=== PATIENT | female | born 1935 | race Caucasian/White ===

== ENCOUNTER 2020-10-02 08:07 | Inpatient (IN) | payer MEDICARE ==
[2020-10-02 09:08] LABS: ABSOLUTE BASOPHILS # (AUTO) 0.1 10^3/uL (0.0-0.2); ABSOLUTE EOSINOPHILS # (AUTO) 0.1 10^3/uL (0.0-0.6); ABSOLUTE MONOCYTES (AUTO) 0.4 10^3/uL (0.1-1.4); HEMATOCRIT 39.1 % (36.0-47.0); MEAN CORPUSCULAR HEMOGLOBIN 29.8 pg (27.0-33.4); RED CELL DISTRIBUTION WIDTH 13.5 % (11.5-14.0); TOTAL CELLS COUNTED % (AUTO) 100 %; VENOUS BLOOD BASE EXCESS 1.2 mmol/L; VENOUS BLOOD HCO3 25.6 mmol/L (20-32); VENOUS BLOOD PCO2 40.1 mmHg (35-63); VENOUS BLOOD PH 7.42 (7.30-7.42)
[2020-10-02 09:18] LABS: ABSOLUTE LYMPHOCYTES (AUTO) 0.7 10^3/uL (0.5-4.7); ABSOLUTE NEUT (AUTO) 4.9 10^3/uL (1.7-8.2); BASOPHILS % (AUTO) 1.2 % (0-2); EOSINOPHILS % (AUTO) 1.8 % (0-6); HEMOGLOBIN 13.8 g/dL (12.0-15.5); LYMPHOCYTES % (AUTO) 11.3 % (13-45); MEAN CORPUSCULAR HGB CONC 35.2 g/dL (32.0-36.0); MEAN CORPUSCULAR VOLUME 85 fl (80-97); MONOCYTES % (AUTO) 6.9 % (3-13); PLATELET COUNT 522 10^3/uL (150-450); RED BLOOD COUNT 4.62 10^6/uL (3.72-5.28); SEGMENTED NEUTROPHILS % (AUTO) 78.8 % (42-78); WHITE BLOOD COUNT 6.2 10^3/uL (4.0-10.5)
[2020-10-02 09:22] LABS: PROTHROMBIN TIME 13.4 SEC (11.4-15.4)
--- NOTE | 2020-10-02 09:23 | RADIOLOGY REPORT (SQ) ---
EXAM DESCRIPTION: CHEST SINGLE VIEW IMAGES COMPLETED DATE/TIME: 10/02/2020 9:06 am REASON FOR STUDY: bed 8 short of breath/sepsis protocol COMPARISON: None. FINDINGS: One-view chest AP upright portable. Lungs are hyperinflated with upper lobe emphysema. Relatively coarse reticular opacities are noted t hroughout the lower half of the lung romero, likely chronic with some component of fibrosis. No over t suggestion of cardiogenic pulmonary edema. Atypical infection to include COVID19 also in the diffe rential. TECHNICAL DOCUMENTATION: JOB ID: [id number] Reading location - IP/workstation name: [email or web address]
[2020-10-02 09:25] LABS: ALBUMIN 3.6 g/dL (3.5-5.0); ALKALINE PHOSPHATASE 137 U/L (38-126); ANION GAP 8 (5-19); ASPARTATE AMINO TRANSFERASE 57 U/L (14-36); BILIRUBIN,DIRECT 0.2 mg/dL (0.0-0.4); BILIRUBIN,TOTAL 0.6 mg/dL (0.2-1.3); BLOOD UREA NITROGEN 26 mg/dL (7-20); CALCIUM 9.5 mg/dL (8.4-10.2); CARBON DIOXIDE 27 mmol/L (22-30); CHLORIDE 100 mmol/L (98-107); GLUCOSE 128 mg/dL (75-110); POTASSIUM 3.7 mmol/L (3.6-5.0)
[2020-10-02] MEDS ORDERED: NORMAL SALINE 1000 ML 1,000 ML IV ONE (10:43)
[2020-10-02 11:06] LABS: C-REACTIVE PROTEIN 59.1 mg/L (<10.0)
[2020-10-02 11:44] LABS: APPEARANCE,URINE CLEAR; BILIRUBIN,URINE NEGATIVE (NEGATIVE); COLOR,URINE YELLOW; GLUCOSE, URINE NEGATIVE (NEGATIVE); KETONES,URINE NEGATIVE (NEGATIVE); LEUKOCYTE ESTERASE,URINE NEGATIVE (NEGATIVE); NITRITE,URINE NEGATIVE (NEGATIVE); PROTEIN,URINE NEGATIVE (NEGATIVE); URINE SPECIFIC GRAVITY 1.024; UROBILINOGEN,URINE NEGATIVE mg/dL (<2.0)
--- NOTE | 2020-10-02 12:10 | RADIOLOGY REPORT (SQ) ---
EXAM DESCRIPTION: CTA CHEST IMAGES COMPLETED DATE/TIME: 10/02/2020 11:51 am REASON FOR STUDY: covid positive/sobr COMPARISON: Radiographs 10/02/2020. TECHNIQUE: CT scan of the chest performed using helical scanning technique with dynamic intravenous contrast injection. Images reviewed with lung, soft tissue and bone windows. Reconstructed coronal and sagittal MPR images reviewed. Additional 3 dimensional post-processing performed to develop Maximal Intensity Projection images (PA P). All images stored on PACS. All CT scanners at this facility use dose modulation, iterative reconstruction, and/or weight based d osing when appropriate to reduce radiation dose to as low as reasonably achievable (ALARA). [facility]: Dose Right [facility]: CareDose [facility]: Dose Right [facility]: Teradose 4D [facility]: ColoWrap CONTRAST TYPE AND DOSE: contrast/concentration: Isovue 350.00 mmol/ml; Total Contrast Delivered: 75. 0 ml; Total Saline Delivered: 75.0 ml Contrast bolus adequate for pulmonary arteries and aorta. RENAL FUNCTION: GFR > 60. RADIATION DOSE: CT Rad equipment meets quality standard of care and radiation dose reduction techniq ues were employed. CTDIvol: 14.3 - 14.9 mGy. DLP: 513 mGy-cm. . LIMITATIONS: None. FINDINGS: LUNGS AND PLEURA: Emphysema in the upper lobes. Coarse interstitial opacities peripherall y in the left upper lobe, bilateral lower lobes and in the right middle lobe. Much of this has an ap pearance suggestive of chronic change and pulmonary fibrosis. Patchy ground-glass opacities are also suggested, however. Most notable in the left upper lobe. No significant pleural effusion or pleura l plaque. AORTA AND GREAT VESSELS: Atherosclerotic without aneurysm or dissection. Patent great vessel origins . HEART: No pericardial effusion. No significant Coronary calcification. PULMONARY ARTERIES: No emboli visualized in the main pulmonary arteries or the segmental branches. HILAR AND MEDIASTINAL STRUCTURES: Mild mediastinal and hilar adenopathy. Largest nodes are sub- redd nal measuring just over 1 cm in short axis. HARDWARE: None in the chest. UPPER ABDOMEN: Pneumobilia, presumed prior sphincterotomy. THYROID AND OTHER SOFT TISSUES: No masses. No adenopathy. BONES: Osteopenic. T12 compression fracture, acuity indeterminate. 3D MIPS: Confirm above findings. OTHER: No other significant finding. IMPRESSION: 1. Lung findings look generally chronic, emphysema with fibrosis. Mild patchy ground-glass infiltrat es in the left upper lobe may reflect the patient's COVID19 infection. 2. No evidence of pulmonary embolus. COMMENT: Quality ID # [id number]: Final reports with documentation of one or more dose reduction techniques (e.g., Automated exposure control, adjustment of the mA and/or kV according to patient size, use of iterative reconstruction technique) TECHNICAL DOCUMENTATION: JOB ID: [id number] 2010 [employer]- All Rights Reserved Reading location - IP/workstation name: [email or web address]
--- NOTE | 2020-10-02 15:03 | EKG REPORT ---
SEVERITY:- NORMAL ECG - SINUS RHYTHM : Confirmed by: Angel Arora 02-Oct-2020 15:02:19
--- NOTE | 2020-10-02 15:12 | ER Document Report ---
Entered by KAYLI ISABEL SCRIBE 10/02/20 1020 Acting as scribe for:VERÓNICA FAY MD ED Respiratory Problem - General Chief Complaint: Shortness Of Breath Stated Complaint: WEAKNESS,COUGH,SHORT OF BREATH Information source: Patient Notes: This 85 year old female patient with history of COPD, presents to the emergency department today with increased shortness of breath. Patient states she flew to [place] from [place] before and has been here since. Patient reports shortness of breath since 09/20 and visited urgent care on 09/22. Patient states she was tested covid + and so was her son and [id number]. Patient reports a productive cough and increased shortness of breath with exertion and at rest. - Related Data Allergies/Adverse Reactions: cat dander Allergy (Verified 10/02/20 08:35) pollen extracts Allergy (Verified 10/02/20 08:35) Past Medical History - General Information source: Patient - Social History Smoking Status: Former Smoker Cigarette use (# per day): No Chew tobacco use (# tins/day): No Frequency of alcohol use: Rare Drug Abuse: None Family History: Reviewed & Not Pertinent Patient has homicidal ideation: No Pulmonary Medical History: Reports: Hx COPD Review of Systems - Review of Systems Constitutional: See HPI, Other - covid + EENT: No symptoms reported Cardiovascular: No symptoms reported Respiratory: See HPI, Cough, Short of breath, Sputum Gastrointestinal: No symptoms reported Genitourinary: No symptoms reported Female Genitourinary: No symptoms reported Musculoskeletal: No symptoms reported Skin: No symptoms reported Hematologic/Lymphatic: No symptoms reported Neurological/Psychological: No symptoms reported -: Yes All other systems reviewed and negative Physical Exam - Vital signs Vitals: Temp 97.8 F 10/02/20 08:10 - General General appearance: Alert - HEENT Head: Normocephalic, Atraumatic Eyes: Normal Pupils: PERRL Pharynx: No: Erythema Neck: Supple - Respiratory Breath sounds: Productive cough Chest palpation: Normal Notes: Saturating between 89-95% on room air. Diminished breath sounds to bases bilaterally. - Cardiovascular Rhythm: Regular Heart sounds: Normal auscultation, S1 appreciated, S2 appreciated Murmur: No - Abdominal Inspection: Normal Distension: No distension Bowel sounds: Normal Tenderness: Nontender - Extremities General upper extremity: Normal inspection. No: Edema General lower extremity: Normal inspection. No: Edema - Neurological Neuro grossly intact: Yes Cognition: Normal Orientation: AAOx4 [place] Coma Scale Eye Opening: Spontaneous [place] Coma Scale Verbal: Oriented [place] Coma Scale Motor: Obeys Commands [place] Coma Scale Total: 15 Speech: Normal - Psychological Associated symptoms: Normal affect, Normal mood - Skin Skin Temperature: Warm Skin Moisture: Dry Skin Color: Normal Skin irregularity: negative: Rash Course - Re-evaluation Re-evalutation: 10/02/20 15:00 Patient is resting saturation has improved since patient was placed on 2 L nasal O2. Patient is on a 12-day of being Covid positive. Patient has a history of COPD. Patient presents to the emergency department today because of increasing exertion no dyspnea shortness of breath and low energy level. - Vital Signs Vital signs: Temp Pulse Resp BP Pulse Ox 97.8 F 26 H 160/72 H 96 10/02/20 08:20 10/02/20 13:28 10/02/20 13:28 10/02/20 13:28 10/02/20 15:03 Vital signs prior to nasal cannula O2 showed saturations between 89 to 93 percent. Once placed on nasal cannula O2 patient sats remained 94 to 97%. - Laboratory Results Result Diagrams: 10/02/20 08:48 10/02/20 08:48 Laboratory Results Interpreted: 10/02/20 10/02/20 10/02/20 08:48 08:48 08:48 Plt Count 522 H Lymph % (Auto) 11.3 L Seg Neutrophils % 78.8 H D-Dimer 1.29 H Sodium 135.1 L BUN 26 H Glucose 128 H AST 57 H ALT 56 H Alkaline Phosphatase 137 H Lactate Dehydrogenase C-Reactive Protein 10/02/20 08:48 Plt Count Lymph % (Auto) Seg Neutrophils % D-Dimer Sodium BUN Glucose AST ALT Alkaline Phosphatase Lactate Dehydrogenase 289 H C-Reactive Protein 59.1 H 10/02/20 15:03 10/02/20 08:48 10/02/20 08:48 MCV 85 fl (80-97) 10/02/20 08:48 MCH 29.8 pg (27.0-33.4) 10/02/20 08:48 MCHC 35.2 g/dL (32.0-36.0) 10/02/20 08:48 RDW 13.5 % (11.5-14.0) 10/02/20 08:48 Seg Neutrophils % 78.8 % (42-78) H 10/02/20 08:48 VBG pH 7.42 (7.30-7.42) 10/02/20 08:48 VBG pCO2 40.1 mmHg (35-63) 10/02/20 08:48 VBG HCO3 25.6 mmol/L (20-32) 10/02/20 08:48 VBG Base Excess 1.2 mmol/L 10/02/20 08:48 Chloride 100 mmol/L (98-107) 10/02/20 08:48 Carbon Dioxide 27 mmol/L (22-30) 10/02/20 08:48 Anion Gap 8 (5-19) 10/02/20 08:48 Est GFR ( Amer) > 60 (>60) 10/02/20 08:48 Glucose 128 mg/dL (75-110) H 10/02/20 08:48 Lactic Acid 1.0 mmol/L (0.7-2.1) 10/02/20 13:54 Calcium 9.5 mg/dL (8.4-10.2) 10/02/20 08:48 Ferritin 242.00 ng/mL (11.1-264.0) 10/02/20 08:48 Total Bilirubin 0.6 mg/dL (0.2-1.3) 10/02/20 08:48 AST 57 U/L (14-36) H 10/02/20 08:48 Alkaline Phosphatase 137 U/L (38-126) H 10/02/20 08:48 C-Reactive Protein 59.1 mg/L (<10.0) H 10/02/20 08:48 Total Protein 7.0 g/dL (6.3-8.2) 10/02/20 08:48 Albumin 3.6 g/dL (3.5-5.0) 10/02/20 08:48 Urine Color YELLOW 10/02/20 10:46 Urine Appearance CLEAR 10/02/20 10:46 Urine pH 6.0 (5.0-9.0) 10/02/20 10:46 Ur Specific [place] 1.024 10/02/20 10:46 Urine Protein NEGATIVE mg/dL (NEGATIVE) 10/02/20 10:46 Urine Glucose (UA) NEGATIVE mg/dL (NEGATIVE) 10/02/20 10:46 Urine Ketones NEGATIVE mg/dL (NEGATIVE) 10/02/20 10:46 Urine Blood NEGATIVE (NEGATIVE) 10/02/20 10:46 Urine Nitrite NEGATIVE (NEGATIVE) 10/02/20 10:46 Ur Leukocyte Esterase NEGATIVE (NEGATIVE) 10/02/20 10:46 Urine WBC (Auto) 1 /HPF 10/02/20 10:46 Urine RBC (Auto) 1 /HPF 10/02/20 10:46 10/02/20 08:48 Troponin I < 0.012 Patient's laboratories does not disclose any critical lab value at this time. Patient's troponin is less than 0.012 patient's white blood cell counts in the normal range patient's chemistry does not show any metabolic derangement patient's blood sugar is around 12 Patient does have some inflammatory markers consistently found elevated with Covid and that includes a C-reactive protein. Critical Laboratory Results Reviewed: Yes Attending or Supervising Physician who Reviewed Labs: VERÓNICA FAY COVID-19 infiltrate in lung - Radiology Results Radiology Results Interpreted: 10/02/20 15:06 Chest/Abdomen CTA 10/02/20 10:41 IMPRESSION: 1. Lung findings look generally chronic, emphysema with fibrosis. Mild patchy g round-glass infiltrates in the left upper lobe may reflect the patient's COVID19 infection. 2. No evidence of pulmonary embolus. CT chest abdomen CT angiogram shows chronic emphysematous changes with fibrosis however there is a mild patchy groundglass infiltrate in the left upper lobe consistent with COVID-19 infection. There is no evidence for pulmonary embolus. Critical Radiology Results Reviewed: Yes Attending or Supervising Physician who Reviewed Radiology: VERÓNICA FAY - COVID-19 groundglass infiltrate left upper lung - EKG Interpretation by Me Additional EKG results interpreted by me: 10/02/20 15:09 Twelve-lead EKG today shows normal sinus rhythm rate of 64 normal axis first- degree AV block QRS interval within normal range QT interval within normal range no acute ST elevations to suggest STEMI. Discharge - Discharge Clinical Impression: Shortness of breath, COVID-19, COPD (chronic obstructive pulmonary disease), L ow oxygen saturation Condition: Good Disposition: ADMITTED INPATIENT Admitting Provider: Erasto (Hospitalist) Unit Admitted: IMCU I personally performed the services described in the documentation, reviewed and edited the documentation which was dictated to the scribe in my presence, and it accurately records my words and actions.
[2020-10-02] MEDS ORDERED: IPRATROPIUM/ALBUTEROL 0.5-2.5 MG/3 ML AMPUL NEB PRN (15:43)
[2020-10-02] MEDS ORDERED: ONDANSETRON 4 MG TAB.RAPDIS PO PRN (15:43)
[2020-10-02] MEDS ORDERED: TEMAZEPAM 7.5 MG CAPSULE PO PRN (15:43)
[2020-10-02] MEDS ORDERED: MAG HYDROX/AL HYDROX/SIMETH SUSP 30 ML UDCUP PO PRN (15:43)
[2020-10-02] MEDS ORDERED: OXYCODONE-ACETAMINOPHEN 5-325 MG TABLET PO PRN (15:43)
[2020-10-02] MEDS ORDERED: ACETAMINOPHEN 325 MG TABLET PO PRN (15:43)
--- NOTE | 2020-10-02 15:43 | PDOC H&P ---
History of Present Illness Admission Date/PCP: 10/02/2020 Patient complains of: Patient presents to emergency room with complaints of difficulty breathing and shortness of breath. She lives in [place] although she has been here since before . She started having shortness of breath on September 20 and it appears she was diagnosed with COVID-19 on September 22 along with her son and [id number]. History of Present Illness: OSKAR MYERS is a 85 year old female Patient presents emergency room with complaints of difficulty breathing and shortness of breath. She lives in [place] although she has been here since before . She started having shortness of breath on September 20 and it appears she was diagnosed with COVID-19 on September 22 along with her son and [id number]. She said however that her symptoms have gotten worse especially with shortness of breath with exertion unable to rest over the last few days. CT scan shows lung findings with chronic emphysematous changes with fibrosis, mild patchy groundglass infiltrates in the left upper lobe which may reflect patient's COVID-19 infection. Patient has COPD underlying although she is on no oxygen as outpatient. As per the imaging findings it looks like she also have some component of chronic underlying pulmonary fibrosis. For text she was found to be hypoxemic on presentation Past Medical History Pulmonary Medical History: Reports: Chronic Obstructive Pulmonary Disease (COPD) Past Surgical History Past Surgical History: Reports: Other - Unknown Social History Information Source: Patient Smoking Status: Former Smoker Electronic Cigarette use?: No - Advance Directive Resuscitation Status: Full Code Family History Family History: Reviewed & Not Pertinent Parental Family History Reviewed: No Children Family History Reviewed: Yes Sibling(s) Family History Reviewed.: Yes Medication/Allergy Allergies/Adverse Reactions: cat dander Allergy (Verified 10/02/20 08:35) pollen extracts Allergy (Verified 10/02/20 08:35) Review of Systems All systems: reviewed and no additional remarkable complaints except as stated Cardiovascular: PRESENT: dyspnea on exertion. ABSENT: chest pain, palpitations Respiratory: PRESENT: dyspnea. ABSENT: hemoptysis, sputum Gastrointestinal: ABSENT: abdominal pain, nausea, vomiting Physical Exam Vital Signs: Temp Pulse Resp BP Pulse Ox 97.8 F 26 H 160/72 H 96 10/02/20 08:20 10/02/20 13:28 10/02/20 13:28 10/02/20 13:28 Intake & Output 10/01/20 10/02/20 10/03/20 06:59 06:59 06:59 Weight 63.8 kg General appearance: PRESENT: no acute distress, well-nourished Head exam: PRESENT: atraumatic, normocephalic Eye exam: PRESENT: conjunctiva pink, EOMI, PERRLA. ABSENT: scleral icterus Mouth exam: PRESENT: moist, tongue midline Neck exam: ABSENT: carotid bruit, JVD, lymphadenopathy, thyromegaly Respiratory exam: PRESENT: clear to auscultation hesham, unlabored. ABSENT: rales, rhonchi, tachypnea, wheezes Cardiovascular exam: PRESENT: RRR. ABSENT: diastolic murmur, rubs, systolic murmur Pulses: PRESENT: normal dorsalis pedis pul Vascular exam: PRESENT: normal capillary refill GI/Abdominal exam: PRESENT: normal bowel sounds, soft. ABSENT: distended, guarding, mass, organolmegaly, rebound, tenderness Rectal exam: PRESENT: deferred Extremities exam: PRESENT: full ROM. ABSENT: calf tenderness, clubbing, pedal edema Neurological exam: PRESENT: alert, awake, oriented to person, oriented to place, oriented to time, oriented to situation, CN II-XII grossly intact. ABSENT: motor sensory deficit Psychiatric exam: PRESENT: appropriate affect, normal mood. ABSENT: homicidal ideation, suicidal ideation Skin exam: PRESENT: dry, intact, warm. ABSENT: cyanosis, rash Results Laboratory Results: 10/02/20 08:48 10/02/20 08:48 10/02/20 10/02/20 10/02/20 08:48 08:48 08:48 WBC 6.2 RBC 4.62 Hgb 13.8 Hct 39.1 MCV 85 MCH 29.8 MCHC 35.2 RDW 13.5 Plt Count 522 H Seg Neutrophils % 78.8 H VBG pH 7.42 VBG pCO2 40.1 VBG HCO3 25.6 VBG Base Excess 1.2 Sodium 135.1 L Potassium 3.7 Chloride 100 Carbon Dioxide 27 Anion Gap 8 BUN 26 H Creatinine 0.89 Est GFR ( Amer) > 60 Glucose 128 H Lactic Acid Calcium 9.5 Ferritin Total Bilirubin 0.6 AST 57 H Alkaline Phosphatase 137 H C-Reactive Protein Total Protein 7.0 Albumin 3.6 Urine Color Urine Appearance Urine pH Ur Specific [place] Urine Protein Urine Glucose (UA) Urine Ketones Urine Blood Urine Nitrite Ur Leukocyte Esterase Urine WBC (Auto) Urine RBC (Auto) 10/02/20 10/02/20 10/02/20 08:48 08:48 10:46 WBC RBC Hgb Hct MCV MCH MCHC RDW Plt Count Seg Neutrophils % VBG pH VBG pCO2 VBG HCO3 VBG Base Excess Sodium Potassium Chloride Carbon Dioxide Anion Gap BUN Creatinine Est GFR ( Amer) Glucose Lactic Acid 1.4 Calcium Ferritin 242.00 Total Bilirubin AST Alkaline Phosphatase C-Reactive Protein 59.1 H Total Protein Albumin Urine Color YELLOW Urine Appearance CLEAR Urine pH 6.0 Ur Specific [place] 1.024 Urine Protein NEGATIVE Urine Glucose (UA) NEGATIVE Urine Ketones NEGATIVE Urine Blood NEGATIVE Urine Nitrite NEGATIVE Ur Leukocyte Esterase NEGATIVE Urine WBC (Auto) 1 Urine RBC (Auto) 1 10/02/20 13:54 WBC RBC Hgb Hct MCV MCH MCHC RDW Plt Count Seg Neutrophils % VBG pH VBG pCO2 VBG HCO3 VBG Base Excess Sodium Potassium Chloride Carbon Dioxide Anion Gap BUN Creatinine Est GFR ( Amer) Glucose Lactic Acid 1.0 Calcium Ferritin Total Bilirubin AST Alkaline Phosphatase C-Reactive Protein Total Protein Albumin Urine Color Urine Appearance Urine pH Ur Specific [place] Urine Protein Urine Glucose (UA) Urine Ketones Urine Blood Urine Nitrite Ur Leukocyte Esterase Urine WBC (Auto) Urine RBC (Auto) 10/02/20 08:48 Troponin I < 0.012 Impressions: Chest/Abdomen CTA 10/02/20 10:41 IMPRESSION: 1. Lung findings look generally chronic, emphysema with fibrosis. Mild patchy ground-glass infiltrates in the left upper lobe may reflect the patient's COVID19 infection. 2. No evidence of pulmonary embolus. Assessment and Plan - Diagnosis (1) Acute hypoxemic respiratory failure due to COVID-19 Is this a current diagnosis for this admission?: Yes (2) COPD (chronic obstructive pulmonary disease) Qualifiers: COPD type: emphysema Is this a current diagnosis for this admission?: Yes (3) COVID-19 Is this a current diagnosis for this admission?: Yes - Plan Summary Summary: Patient was initially hypoxemic with oxygen saturation in the mid 80s as per emergency department. She is also tachypneic. She did improve when she was given oxygen. She will be placed on the ER Covid unit and started on the usual regiment regimen including ivermectin, zinc, vitamin D3 as well as prophylactic empiric Zithromax. She will also be placed on dexamethasone. She is currently requiring oxygen by nasal cannula I will continue with this and monitor and adjust as needed - Time Time Spent with patient: 25-34 minutes Medications reviewed and adjusted accordingly: Yes Anticipated Discharge Disposition: Home, Self Care Anticipated Discharge Timeframe: within 72 hours
[2020-10-02] MEDS: DEXAMETHASONE SOD PHOSPHATE INJ 4 MG/1 ML VIAL IV SCH (16:20)
[2020-10-02] MEDS: ENOXAPARIN SODIUM INJ 60 MG/0.6 ML DISP.SYRIN SUBCUT SCH (16:21)
[2020-10-02] MEDS: CHOLECALCIFEROL (D3) 1,000 UNIT (25 MCG) TABLET PO SCH (16:21)
[2020-10-02] MEDS: VITAMIN B COMPLEX TABLET PO SCH (16:21)
[2020-10-02] MEDS ORDERED: AZITHROMYCIN 250 MG TABLET PO SCH (18:00)
[2020-10-02] MEDS: IVERMECTIN 3 MG TABLET PO SCH (19:05)
[2020-10-02] MEDS: FAMOTIDINE 20 MG TABLET PO SCH (22:56)
[2020-10-03 06:29] LABS: ANION GAP 6 (5-19); BLOOD UREA NITROGEN 21 mg/dL (7-20); CALCIUM 9.1 mg/dL (8.4-10.2); CARBON DIOXIDE 27 mmol/L (22-30); CHLORIDE 102 mmol/L (98-107); GLUCOSE 138 mg/dL (75-110); POTASSIUM 3.9 mmol/L (3.6-5.0)
[2020-10-03] MEDS: DEXAMETHASONE SOD PHOSPHATE INJ 4 MG/1 ML VIAL IV SCH (09:47)
[2020-10-03] MEDS: ZINC SULFATE 220 MG CAPSULE PO SCH (09:47)
[2020-10-03] MEDS: CHOLECALCIFEROL (D3) 1,000 UNIT (25 MCG) TABLET PO SCH (09:48)
[2020-10-03] MEDS: FAMOTIDINE 20 MG TABLET PO SCH ×2 (09:48→21:32)
[2020-10-03] MEDS: ENOXAPARIN SODIUM INJ 60 MG/0.6 ML DISP.SYRIN SUBCUT SCH (09:50)
[2020-10-03 09:52] LABS: HEMATOCRIT 38.2 % (36.0-47.0); HEMOGLOBIN 13.2 g/dL (12.0-15.5); MEAN CORPUSCULAR HEMOGLOBIN 29.3 pg (27.0-33.4); MEAN CORPUSCULAR HGB CONC 34.6 g/dL (32.0-36.0); MEAN CORPUSCULAR VOLUME 85 fl (80-97); PLATELET COUNT 540 10^3/uL (150-450); RED BLOOD COUNT 4.51 10^6/uL (3.72-5.28); RED CELL DISTRIBUTION WIDTH 13.4 % (11.5-14.0); WHITE BLOOD COUNT 5.7 10^3/uL (4.0-10.5)
[2020-10-03] MEDS ORDERED: ENOXAPARIN SODIUM INJ 40 MG/0.4 ML DISP.SYRIN SUBCUT SCH (10:00)
[2020-10-03] MEDS: DOCUSATE SODIUM 100 MG CAPSULE PO SCH (10:07)
--- NOTE | 2020-10-03 11:53 | PDOC PROGRESS REPORT ---
Subjective Date:: 10/03/20 Subjective:: Patient is an 85-year-old female with a past medical history of COPD who was admitted 10/02/2020 with acute respiratory failure with hypoxia secondary to COVID-19 pneumonia in the setting of COPD with chronic emphysematous changes with fibrosis. Patient was seen on morning rounds. She was found resting in bed, comfortably, on supplemental oxygen via nasal cannula at 2 L/min. She is not home O2 dependent. She states that she is feeling much better today. She does admit to some continued fatigue and dyspnea while at rest. She denies all other symptoms. Specifically denies fever, chills, chest pain, palpitations, orthopnea, cough, abdominal pain, nausea vomiting and diarrhea. She has no questions or concerns at this time. No concerns per nursing. Reason For Visit: ACUTE HYPOXEMIC RESPIRATORY FAILURE,COVID 19 Physical Exam Vital Signs: Temp Pulse Resp BP Pulse Ox 97.3 F 69 15 166/72 H 93 10/03/20 07:30 10/03/20 08:26 10/03/20 08:26 10/03/20 08:26 10/03/20 08:26 Intake & Output 10/02/20 10/03/20 10/04/20 06:59 06:59 06:59 Intake Total 1520 Balance 1520 Weight 58.9 kg General appearance: PRESENT: no acute distress, well-developed, well-nourished Head exam: PRESENT: atraumatic, normocephalic Eye exam: PRESENT: conjunctiva pink, EOMI, PERRLA. ABSENT: scleral icterus Mouth exam: PRESENT: moist, tongue midline Respiratory exam: PRESENT: clear to auscultation hesham, symmetrical, unlabored, other - Supplemental oxygen by nasal cannula. ABSENT: rales, rhonchi, wheezes Cardiovascular exam: PRESENT: RRR. ABSENT: diastolic murmur, rubs, systolic murmur Vascular exam: PRESENT: normal capillary refill Extremities exam: PRESENT: full ROM. ABSENT: calf tenderness, clubbing, pedal edema Neurological exam: PRESENT: alert, awake, oriented to person, oriented to place, oriented to time, oriented to situation, CN II-XII grossly intact. ABSENT: motor sensory deficit Psychiatric exam: PRESENT: appropriate affect, normal mood - Irritable. ABSENT: homicidal ideation, suicidal ideation Skin exam: PRESENT: dry, intact, warm. ABSENT: cyanosis, rash Results Laboratory Results: 10/03/20 08:09 10/03/20 05:58 10/02/20 10/02/20 10/03/20 13:54 16:50 05:58 WBC Cancelled RBC Cancelled Hgb Cancelled Hct Cancelled MCV Cancelled MCH Cancelled MCHC Cancelled RDW Cancelled Plt Count Cancelled Sodium Potassium Chloride Carbon Dioxide Anion Gap BUN Creatinine Est GFR ( Amer) Glucose Lactic Acid 1.0 1.0 Calcium 10/03/20 10/03/20 05:58 08:09 WBC 5.7 RBC 4.51 Hgb 13.2 Hct 38.2 MCV 85 MCH 29.3 MCHC 34.6 RDW 13.4 Plt Count 540 H Sodium 135.3 L Potassium 3.9 Chloride 102 Carbon Dioxide 27 Anion Gap 6 BUN 21 H Creatinine 0.71 Est GFR ( Amer) > 60 Glucose 138 H Lactic Acid Calcium 9.1 10/02/20 08:48 Troponin I < 0.012 Impressions: Chest/Abdomen CTA 10/02/20 10:41 IMPRESSION: 1. Lung findings look generally chronic, emphysema with fibrosis. Mild patchy ground-glass infiltrates in the left upper lobe may reflect the patient's COVID19 infection. 2. No evidence of pulmonary embolus. Assessment and Plan - Diagnosis (1) Acute hypoxemic respiratory failure due to COVID-19 Is this a current diagnosis for this admission?: Yes Plan: Covid positive D-dimer elevated 1.29 Ferritin normal, CRP 59.1, LDH 289. Daily aspirin therapy. Continue prophylactic Lovenox. Provide supplemental oxygen as needed maintain saturations greater than 89%. Ivermectin 12 mg daily x2 doses. IV dexamethasone. As needed nebulizer treatments. Zinc, vitamin D, vitamin C, and melatonin supplementation. Encourage pulmonary toilet. Isolation precautions. (2) COPD (chronic obstructive pulmonary disease) Qualifiers: COPD type: emphysema Is this a current diagnosis for this admission?: Yes Plan: Stable and without exacerbation at this time; lung sounds are clear. Patient denies sputum production. Resume home medication regiment once reconciled. Continue as needed nebulizer treatments. IV dexamethasone for treatment of COVID-19. Robitussin as needed. Pulmonary toilet is encouraged with incentive spirometer, flutter valve, and early ambulation. - Time Time Spent with patient: 25-34 minutes Medications reviewed and adjusted accordingly: Yes Anticipated Discharge Disposition: Home, Self Care Anticipated Discharge Timeframe: within 48 hours - Pending O2 needs
[2020-10-03] MEDS: VITAMIN B COMPLEX TABLET PO SCH ×2 (13:23→17:31)
[2020-10-03] MEDS ORDERED: ALBUTEROL SULFATE HFA (90 MCG/PUFF) 8 GM MDI IH PRN (14:49)
[2020-10-03] MEDS: IVERMECTIN 3 MG TABLET PO SCH (17:31)
[2020-10-03] MEDS: ASCORBIC ACID 500 MG TABLET PO SCH (17:31)
[2020-10-03] MEDS ORDERED: MELATONIN 3 MG TABLET PO SCH (22:00)
[2020-10-04] MEDS ORDERED: LEVOTHYROXINE SODIUM 0.075 MG TABLET PO SCH (06:00)
[2020-10-04] MEDS ORDERED: HYDROCHLOROTHIAZIDE 25 MG TABLET PO SCH (08:00)
[2020-10-04] MEDS ORDERED: FLUTICASONE/UMECLIDIN/VILANTER 100-62.5-25 MCG/DOSE IH SCH (10:00)
[2020-10-04] MEDS ORDERED: ASPIRIN 81 MG TABLET, CHEWABLE PO SCH (10:00)
[2020-10-04] MEDS ORDERED: LEVOTHYROXINE SODIUM 75 MCG PO SCH (10:00)
[2020-10-04] MEDS ORDERED: AMLODIPINE BESYLATE 5 MG TABLET PO SCH (10:00)
[2020-10-04] MEDS: CHOLECALCIFEROL (D3) 1,000 UNIT (25 MCG) TABLET PO SCH (10:17)
[2020-10-04] MEDS: ZINC SULFATE 220 MG CAPSULE PO SCH (10:17)
[2020-10-04] MEDS: DOCUSATE SODIUM 100 MG CAPSULE PO SCH (10:17)
[2020-10-04] MEDS: FAMOTIDINE 20 MG TABLET PO SCH (10:17)
[2020-10-04] MEDS: ASCORBIC ACID 500 MG TABLET PO SCH ×2 (10:17→17:42)
[2020-10-04] MEDS: DEXAMETHASONE SOD PHOSPHATE INJ 4 MG/1 ML VIAL IV SCH (10:17)
[2020-10-04] MEDS: VITAMIN B COMPLEX TABLET PO SCH (10:18)
[2020-10-04] MEDS: ENOXAPARIN SODIUM INJ 60 MG/0.6 ML DISP.SYRIN SUBCUT SCH (10:18)
[2020-10-04 18:38] VITALS: BP 174/65
--- NOTE | 2020-10-04 19:04 | PDOC DISCHARGE SUMMARY ---
Impression - Admit/DC Date/PCP Admission Date/Primary Care Provider: 10/02/20 15:54 Discharge Date: 10/04/20 - Discharge Diagnosis (1) Acute hypoxemic respiratory failure due to COVID-19 Is this a current diagnosis for this admission?: Yes (2) COPD (chronic obstructive pulmonary disease) Is this a current diagnosis for this admission?: Yes - Additional Information Resuscitation Status: Full Code Discharge Diet: Regular Discharge Activity: Activity As Tolerated, Balance Activity w/Rest, Slowly Increase Activity Prescriptions: Aspirin [Aspirin 81 mg Chewable Tablet] 81 mg PO DAILY #30 tab.chew Prednisone [Deltasone 20 mg Tablet] 40 mg PO DAILY #8 tablet Home Medications: Albuterol Sulfate [Ventolin Hfa 8 gm Mdi] 1 puff IH Q4HP PRN 10/03/20 Amlodipine Besylate [Norvasc 5 mg Tablet] 5 mg PO DAILY 10/03/20 Biotin 10,000 mcg PO DAILY 10/03/20 Cholecalciferol (Vitamin D3) [Vitamin D3 1000 Unit Tablet] 2,000 unit PO DAILY 10/03/20 Fluticasone/Umeclidin/Vilanter [Trelegy 100-62.5-25 Mcg Ellipta 14 Dose/Dpi] 1 each PO DAILY 10/03/20 Hydrochlorothiazide [Hydrodiuril 25 mg Tablet] 25 mg PO QAM 10/03/20 Levothyroxine Sodium [Levothyroxine] 75 mcg PO DAILY 10/03/20 Aspirin [Aspirin 81 mg Chewable Tablet] 81 mg PO DAILY #30 tab.chew 10/04/20 Docusate Sodium [Colace 100 mg Capsule] 100 mg PO DAILY capsule 10/04/20 Prednisone [Deltasone 20 mg Tablet] 40 mg PO DAILY #8 tablet 10/04/20 History of Present Illiness History of Present Illness: Per H&P by Dr. Maurer: OSKAR MYERS is a 85 year old female Patient presents emergency room with complaints of difficulty breathing and shortness of breath. She lives in [place] although she has been here since before . She started having shortness of breath on September 20 and it appears she was diagnosed with COVID-19 on September 22 along with her son and [id number]. She said however that her symptoms have gotten worse especially with shortness of breath with exertion unable to rest over the last few days. CT scan shows lung findings with chronic emphysematous changes with fibrosis, mild patchy groundglass infiltrates in the left upper lobe which may reflect patient's COVID-19 infection. Patient has COPD underlying although she is on no oxygen as outpatient. As per the imaging findings it looks like she also have some component of chronic underlying pulmonary fibrosis. For text she was found to be hypoxemic on presentation Hospital Course Hospital Course: (1) Acute hypoxemic respiratory failure due to COVID-19 Covid positive D-dimer elevated 1.29 Ferritin normal, CRP 59.1, LDH 289. While admitted, patient received prophylactic Lovenox. Recommend that she continue daily aspirin therapy x30 days following discharge. She received Ivermectin 12 mg daily x2 doses. She was further supported with IV dexamethasone, Zinc, vitamin D, vitamin C, and melatonin supplementation. At discharge she is provided a step-down dose of prednisone to continue x 4 days. She may elect to continue the above vitamin regimen at her discretion. Recommend continued pulmonary toilet with IS, Flutter Valve, and frequent ambulation. The patient is now maintaining oxygen saturations on room air, while at rest, but does desaturate to the mid 80s when ambulatory. Therefore, arrangements have been made for her to receive home oxygen. Her hospital benefit has been maximized and she is now stable for discharge to home. Discussed recommendations w/ both patient and family who are comfortable with, and agreeable to, discharge. (2) COPD (chronic obstructive pulmonary disease) Stable and without exacerbation at this time; lung sounds are clear. Patient denies sputum production. Resume home dose Trelegy and albuterol HFA as needed. Pulmonary toilet is encouraged with incentive spirometer, flutter valve, and frequent ambulation. Patient does qualify for home O2; it is unclear at this time if this is related to COVID-19 or progression of her underlying COPD disease. Discussed with patient to continue oxygen, continuous use, until her follow-up with her primary care provider where they will determine whether or not she needs to continue indefinitely. Physical Exam Vital Signs: Temp Pulse Resp BP Pulse Ox 97.6 F 69 18 174/65 H 96 10/04/20 18:36 10/04/20 18:36 10/04/20 18:36 10/04/20 18:36 10/04/20 18:36 Intake & Output 10/03/20 10/04/20 10/05/20 06:59 06:59 06:59 Intake Total 1520 1430 Balance 1520 1430 Weight 58.9 kg 59.1 kg General appearance: PRESENT: no acute distress, cooperative, well-developed, well-nourished Head exam: PRESENT: atraumatic, normocephalic Eye exam: PRESENT: conjunctiva pink, EOMI, PERRLA. ABSENT: scleral icterus Mouth exam: PRESENT: moist, tongue midline Respiratory exam: PRESENT: clear to auscultation hesham, symmetrical, unlabored, other - Supplemental oxygen by nasal cannula. ABSENT: rales, rhonchi, wheezes Cardiovascular exam: PRESENT: RRR. ABSENT: diastolic murmur, rubs, systolic murmur Pulses: PRESENT: normal dorsalis pedis pul Vascular exam: PRESENT: normal capillary refill Extremities exam: PRESENT: full ROM. ABSENT: calf tenderness, clubbing, pedal edema Musculoskeletal exam: PRESENT: ambulatory Neurological exam: PRESENT: alert, awake, oriented to person, oriented to place, oriented to time, oriented to situation, CN II-XII grossly intact. ABSENT: motor sensory deficit Psychiatric exam: PRESENT: appropriate affect, normal mood. ABSENT: homicidal ideation, suicidal ideation Skin exam: PRESENT: dry, intact, warm. ABSENT: cyanosis, rash Results Laboratory Results: WBC 5.7 10^3/uL (4.0-10.5) 10/03/20 08:09 RBC 4.51 10^6/uL (3.72-5.28) 10/03/20 08:09 Hgb 13.2 g/dL (12.0-15.5) 10/03/20 08:09 Hct 38.2 % (36.0-47.0) 10/03/20 08:09 MCV 85 fl (80-97) 10/03/20 08:09 MCH 29.3 pg (27.0-33.4) 10/03/20 08:09 MCHC 34.6 g/dL (32.0-36.0) 10/03/20 08:09 RDW 13.4 % (11.5-14.0) 10/03/20 08:09 Plt Count 540 10^3/uL (150-450) H 10/03/20 08:09 Lymph % (Auto) 11.3 % (13-45) L 10/02/20 08:48 Mckean % (Auto) 6.9 % (3-13) 10/02/20 08:48 Eos % (Auto) 1.8 % (0-6) 10/02/20 08:48 Baso % (Auto) 1.2 % (0-2) 10/02/20 08:48 Absolute Neuts (auto) 4.9 10^3/uL (1.7-8.2) 10/02/20 08:48 Absolute Lymphs (auto) 0.7 10^3/uL (0.5-4.7) 10/02/20 08:48 Absolute Monos (auto) 0.4 10^3/uL (0.1-1.4) 10/02/20 08:48 Absolute Eos (auto) 0.1 10^3/uL (0.0-0.6) 10/02/20 08:48 Absolute Basos (auto) 0.1 10^3/uL (0.0-0.2) 10/02/20 08:48 Seg Neutrophils % 78.8 % (42-78) H 10/02/20 08:48 Platelet Estimate Cancelled 10/03/20 05:58 PT 13.4 SEC (11.4-15.4) 10/02/20 08:48 INR 1.00 10/02/20 08:48 D-Dimer 1.29 ug/mL (0.00-0.50) H 10/02/20 08:48 VBG pH 7.42 (7.30-7.42) 10/02/20 08:48 VBG pCO2 40.1 mmHg (35-63) 10/02/20 08:48 VBG HCO3 25.6 mmol/L (20-32) 10/02/20 08:48 VBG Base Excess 1.2 mmol/L 10/02/20 08:48 Sodium 135.3 mmol/L (137-145) L 10/03/20 05:58 Potassium 3.9 mmol/L (3.6-5.0) 10/03/20 05:58 Chloride 102 mmol/L (98-107) 10/03/20 05:58 Carbon Dioxide 27 mmol/L (22-30) 10/03/20 05:58 Anion Gap 6 (5-19) 10/03/20 05:58 BUN 21 mg/dL (7-20) H 10/03/20 05:58 Creatinine 0.71 mg/dL (0.52-1.25) 10/03/20 05:58 Est GFR ( Amer) > 60 (>60) 10/03/20 05:58 Est GFR (MDRD) Non-Af > 60 (>60) 10/03/20 05:58 Glucose 138 mg/dL (75-110) H 10/03/20 05:58 Lactic Acid 1.0 mmol/L (0.7-2.1) 10/02/20 16:50 Calcium 9.1 mg/dL (8.4-10.2) 10/03/20 05:58 Ferritin 242.00 ng/mL (11.1-264.0) 10/02/20 08:48 Total Bilirubin 0.6 mg/dL (0.2-1.3) 10/02/20 08:48 Direct Bilirubin 0.2 mg/dL (0.0-0.4) 10/02/20 08:48 Neonat Total Bilirubin Not Reportable 10/02/20 08:48 Neonat Direct Bilirubin Not Reportable 10/02/20 08:48 Neonat Indirect Bili Not Reportable 10/02/20 08:48 AST 57 U/L (14-36) H 10/02/20 08:48 ALT 56 U/L (<35) H 10/02/20 08:48 Alkaline Phosphatase 137 U/L (38-126) H 10/02/20 08:48 Lactate Dehydrogenase 289 U/L (120-246) H 10/02/20 08:48 Troponin I < 0.012 ng/mL 10/02/20 08:48 C-Reactive Protein 59.1 mg/L (<10.0) H 10/02/20 08:48 Total Protein 7.0 g/dL (6.3-8.2) 10/02/20 08:48 Albumin 3.6 g/dL (3.5-5.0) 10/02/20 08:48 Urine Color YELLOW 10/02/20 10:46 Urine Appearance CLEAR 10/02/20 10:46 Urine pH 6.0 (5.0-9.0) 10/02/20 10:46 Ur Specific [place] 1.024 10/02/20 10:46 Urine Protein NEGATIVE mg/dL (NEGATIVE) 10/02/20 10:46 Urine Glucose (UA) NEGATIVE mg/dL (NEGATIVE) 10/02/20 10:46 Urine Ketones NEGATIVE mg/dL (NEGATIVE) 10/02/20 10:46 Urine Blood NEGATIVE (NEGATIVE) 10/02/20 10:46 Urine Nitrite NEGATIVE (NEGATIVE) 10/02/20 10:46 Urine Bilirubin NEGATIVE (NEGATIVE) 10/02/20 10:46 Urine Urobilinogen NEGATIVE mg/dL (<2.0) 10/02/20 10:46 Ur Leukocyte Esterase NEGATIVE (NEGATIVE) 10/02/20 10:46 Urine WBC (Auto) 1 /HPF 10/02/20 10:46 Urine RBC (Auto) 1 /HPF 10/02/20 10:46 Squamous Epi Cells Auto 1 /HPF 10/02/20 10:46 Urine Mucus (Auto) RARE /LPF 10/02/20 10:46 Urine Ascorbic Acid NEGATIVE (NEGATIVE) 10/02/20 10:46 Slides for Path Review Cancelled 10/03/20 05:58 10/02/20 08:48 Troponin I < 0.012 Impressions: Chest/Abdomen CTA 10/02/20 10:41 IMPRESSION: 1. Lung findings look generally chronic, emphysema with fibrosis. Mild patchy ground-glass infiltrates in the left upper lobe may reflect the patient's COVID19 infection. 2. No evidence of pulmonary embolus. Plan Plan of Treatment: Patient is discharged home in stable condition. Arrangements have been made for her to receive home oxygen at 2 L/min via nasal cannula for continuous use. She is advised to follow-up with her primary care provider immediately upon return to her home [facility]. She is instructed to continue to take her medications as prescribed. Encourage patient to continue mask wearing and social distancing. Her COVID-19 quarantine period has completed as she originally tested positive on 09/22/2020. She is encouraged to return to the emergency department, as needed, for concerning symptoms. Time Spent: Greater than 30 Minutes Stroke Is this a Stroke Patient?: No Acute Heart Failure Is this a Heart Failure Patient?: No
[2020-10-05] MEDS ORDERED: DEXAMETHASONE SOD PHOS INJ 10 MG/1 ML VIAL IV SCH (10:00)
== END 2020-10-04 19:05 | disposition home or self-care (01) | DRG 177 ==
LOC: ER 08:07 → EH 15:54 → 3W 18:34
PROVIDERS: ADMIT Internal Medicine; ATTEND Registered Nurse
DX: U07.1 COVID-19 (principal); J96.01 Acute respiratory failure with hypoxia; J43.9 Emphysema, unspecified; J84.10 Pulmonary fibrosis, unspecified; R79.1 Abnormal coagulation profile; Z87.891 Personal history of nicotine dependence; Z79.82 Long term (current) use of aspirin; Z79.899 Other long term (current) drug therapy
CPT/HCPCS: 36415; 71045; 71275; 80048; 80053; 81001; 82728; 82803; 83605; 83615; 84484; 85025; 85027; 85379; 85610; 86140; 87040; 93005; 93010; 94799; 96360; 96361; 99285; J1100; J1650; J3490; J7030; S0119